=== PATIENT | female | born 1965 | race African-American/Black ===

== ENCOUNTER 2023-07-25 14:08 | Day surgery (SDC) | payer OTHER ==
[2023-07-25] MEDS: diphenhydrAMINE HCL 25 MG CAPSULE (FP) PO ONE (14:27)
[2023-07-25] MEDS: SODIUM CHLORIDE 250 ML IV ONE (15:15)
[2023-07-25] MEDS: FERRIC CARBOXYMALTOSE 750 MG in SODIUM CHLORIDE 250 ML IVPB ONE (15:18)
[2023-07-25 17:35] VITALS: TEMP 98.1
[2023-07-25 17:39] VITALS: BP 117/75; PULSE 59; RESP 18
== END 2023-07-25 17:10 | disposition home or self-care (01) ==
LOC: JONCNONCHE 14:08 → J7W 14:10 → JONCNONCHE 17:10
PROVIDERS: ATTEND Internal Medicine Hematology & Oncology
PROC: 3E033GC Introduction of Other Therapeutic Substance into Peripheral Vein, Percutaneous Approach (ICD-10-PCS; principal; 2023-07-25)
DX: D50.9 Iron deficiency anemia, unspecified (principal)
CPT/HCPCS: 96365; J1439

== ENCOUNTER 2023-08-01 11:00 | Day surgery (SDC) | payer OTHER ==
[2023-08-01] MEDS: diphenhydrAMINE HCL 25 MG CAPSULE (FP) PO ONE ×2 (11:42→14:19)
[2023-08-01] MEDS: FERRIC CARBOXYMALTOSE 750 MG in SODIUM CHLORIDE 250 ML IVPB ONE (11:59)
[2023-08-01 16:05] VITALS: RESP 20
[2023-08-01 18:04] VITALS: BP 120/76; PULSE 66; TEMP 98
== END 2023-08-01 13:00 | disposition home or self-care (01) ==
LOC: JONCNONCHE 11:00
PROVIDERS: ATTEND Internal Medicine Hematology & Oncology
PROC: 3E033GC Introduction of Other Therapeutic Substance into Peripheral Vein, Percutaneous Approach (ICD-10-PCS; principal; 2023-08-01)
DX: D50.9 Iron deficiency anemia, unspecified (principal)
CPT/HCPCS: 96365; J1439